=== PATIENT | female | born 1960 | race Caucasian/White ===

== ENCOUNTER 2019-06-05 15:24 | Inpatient (IN) | payer OTHER ==
[~2019-06-05] VITALS: Ht 160 cm; Wt 80.3 kg
[2019-06-18] MEDS ORDERED: SYNTHROID88 MCG PO (14:16)
[2019-06-18] MEDS ORDERED: PEPCID AC20 MG PO (14:17)
[2019-06-18] MEDS ORDERED: SINGULAIR10 MG PO (14:17)
[2019-06-18] MEDS ORDERED: FLUTICASONE PO (14:18)
[2019-06-18] MEDS ORDERED: FLOVENT DISKU250 MCG IH (14:19)
[2019-06-18] MEDS ORDERED: VENTOLIN HFA18 GM IH (14:19)
[2019-06-18] MEDS ORDERED: ATROVENT HFA12.9 GM IH (14:20)
[2019-06-18] MEDS ORDERED: PERCOCET 5-3251 EACH PO (14:21)
[2019-06-18] MEDS ORDERED: LINZESS PO (14:21)
[2019-06-18] MEDS ORDERED: DIALYVITE 8001 EACH PO (14:22)
[2019-06-18] MEDS ORDERED: GABAPEN PO (14:22)
[2019-06-18] MEDS ORDERED: PREDNISONE PO (14:23)
[2019-06-18] MEDS ORDERED: EPIPEN (14:24)
[2019-06-18] MEDS ORDERED: BACLOFEN20 MG PO (14:24)
[2019-06-27] MEDS ORDERED: CLONAZEPAM2 MG PO (08:19)
[2019-06-27] MEDS ORDERED: CLONAZEPAM0.5 MG PO (08:19)
[2019-06-27] MEDS ORDERED: IMIPRAMINE HCL25 MG PO (08:19)
[2019-06-27] MEDS ORDERED: VITAMIN D10000 UNIT PO (08:20)
[2019-06-27] MEDS ORDERED: ATORVASTATIN CA20 MG PO (08:20)
[2019-06-27] MEDS ORDERED: NEURONTIN800 MG PO (08:23)
[2019-06-27] MEDS ORDERED: LINZESS145 MCG PO (08:25)
[2019-06-27] MEDS ORDERED: PREDNISONE20 MG PO (08:25)
[2019-06-27] MEDS ORDERED: EPIPEN0.3 MG/0.1 (08:26)
[2019-06-30] MEDS ORDERED: OXYC1TAB9 PO (11:26)
[2019-06-30] MEDS ORDERED: INTESTINEX680 M1 PO (11:26)
[2019-06-30] MEDS ORDERED: LEVSIN/SL0.125 MG SL (11:27)
== END 2019-06-30 14:26 | disposition home or self-care (01) | DRG 330 ==
LOC: O/R 06-27 06:15 → SURG 06-27 06:15 → SURH 06-29 14:22
PROVIDERS: ADMIT Surgery
PROC: 0DJD8ZZ Inspection of Lower Intestinal Tract, Via Natural or Artificial Opening Endoscopic (ICD-10-PCS; 2019-06-27)
PROC: 4A033R1 Measurement of Arterial Saturation, Peripheral, Percutaneous Approach (ICD-10-PCS; 2019-06-27)
PROC: 3E0F7GC Introduction of Other Therapeutic Substance into Respiratory Tract, Via Natural or Artificial Opening (ICD-10-PCS; 2019-06-27)
PROC: 4A12X4Z Monitoring of Cardiac Electrical Activity, External Approach (ICD-10-PCS; 2019-06-27)
PROC: 0DTN4ZZ Resection of Sigmoid Colon, Percutaneous Endoscopic Approach (ICD-10-PCS; principal; 2019-06-27 07:00)
DX: K57.32 Diverticulitis of large intestine without perforation or abscess without bleeding (principal); J45.21 Mild intermittent asthma with (acute) exacerbation; K66.0 Peritoneal adhesions (postprocedural) (postinfection); G47.33 Obstructive sleep apnea (adult) (pediatric); Z88.8 Allergy status to other drugs, medicaments and biological substances; Z91.040 Latex allergy status; R73.01 Impaired fasting glucose

== ENCOUNTER 2020-09-08 06:55 | Day surgery (SDC) | payer OTHER ==
[~2020-09-08 06:55] MED LIST: ATORVASTATIN CA20 MG PO; ATROVENT HFA12.9 GM IH; BACLOFEN20 MG PO; CLONAZEPAM0.5 MG PO; CLONAZEPAM2 MG PO; DIALYVITE 8001 EACH PO; EPIPEN; EPIPEN0.3 MG/0.1; FLOVENT DISKU250 MCG IH; FLUTICASONE PO; GABAPEN PO; IMIPRAMINE HCL25 MG PO; INTESTINEX680 M1 PO; LEVSIN/SL0.125 MG SL; LINZESS PO; LINZESS145 MCG PO; NEURONTIN800 MG PO; OXYC1TAB9 PO; PEPCID AC20 MG PO; PERCOCET 5-3251 EACH PO; PREDNISONE PO; PREDNISONE20 MG PO; SINGULAIR10 MG PO; SYNTHROID88 MCG PO; VENTOLIN HFA18 GM IH; VITAMIN D10000 UNIT PO
== END 2020-09-08 12:05 | disposition home or self-care (01) ==
LOC: AMB-ENDOS 06:55
PROVIDERS: ATTEND Surgery
DX: K62.89 Other specified diseases of anus and rectum (principal); K64.8 Other hemorrhoids; Z20.828 Contact with and (suspected) exposure to other viral communicable diseases